=== PATIENT | female | born 1970 | race Caucasian/White ===

== ENCOUNTER → 2018-12-22 | Outpatient (CLI) | payer MEDICAID ==
--- NOTE | 2018-12-22 10:54 | Diagnostic Imaging Report ---
INDICATION: Abdominal pain, mostly midline pain. TECHNIQUE: Multiple real-time tang scale sonographic images of the abdomen. CORRELATION STUDY: None FINDINGS: LIVER: Normal echotexture within the visualized portions of the liver. There is normal, hepatopedal direction of flow within the main portal vein. Liver length 18 cm. GALLBLADDER: No shadowing gallstones or pericholecystic fluid. COMMON BILE DUCT: Nondilated at 4 mm. PANCREAS: Limited in visualization. The visualized portions appearing unremarkable. SPLEEN: 9.6 x 3.4 x 7.9 cm, unremarkable. ABDOMINAL AORTA: Partially obscured. INFERIOR VENA CAVA: Limited in visualization. RIGHT KIDNEY: 10.7 x 4.7 x 5.3 cm. Unremarkable. LEFT KIDNEY: 10.9 x 5.2 x 5.6 cm. Unremarkable. OTHER: None. IMPRESSION: 1. Unremarkable-appearing abdominal ultrasound evaluation. Dictated by: Dictated on workstation # [id number]
== END ==
LOC: RAD FS 09:14
PROVIDERS: ATTEND Emergency Medicine
DX: R10.9 Unspecified abdominal pain (principal)
CPT/HCPCS: 76700

== ENCOUNTER → 2019-01-13 | Outpatient (CLI) | payer MEDICAID ==
--- NOTE | 2019-01-13 11:25 | Diagnostic Imaging Report ---
INDICATION: Neck pain. Time of exam: 11:02 AM Three-view cervical spine were obtained. Alignment is normal. There is some straightening. There are some ununited osteophytes anteriorly at C5-6 and C6-7 levels. No fracture is seen. Odontoid appears intact. IMPRESSION: Cervical spondylosis. No acute bony abnormality is detected. Dictated by: Dictated on workstation # [id number]
== END ==
LOC: RAD FS 10:54
PROVIDERS: ATTEND Emergency Medicine
DX: M47.812 Spondylosis without myelopathy or radiculopathy, cervical region (principal); M43.02 Spondylolysis, cervical region
CPT/HCPCS: 72040

== ENCOUNTER 2019-06-22 10:15 | Outpatient (CLI) | payer MEDICAID ==
[~2019-06-22] VITALS: Ht 154 cm; Wt 104.5 kg
[2019-06-22] MEDS ORDERED: LEVO125T PO (10:21)
== END 2019-06-22 10:29 | disposition home or self-care (01) ==
LOC: PREOP 10:15
PROVIDERS: ATTEND Surgery
DX: Z01.818 Encounter for other preprocedural examination (principal)

== ENCOUNTER 2019-06-23 10:34 | Day surgery (SDC) | payer MEDICAID ==
[2019-06-23] VITALS (9 sets, daily range): BP systolic 101–129; BP diastolic 57–80
[~2019-06-23 10:34] MED LIST: LEVO125T PO
[2019-06-23] MEDS ORDERED: NS IV 500 ML 500 ML ONE (10:46)
[2019-06-23] MEDS ORDERED: NS IV 500 ML 500 ML IV PRN (10:51)
[2019-06-23] MEDS ORDERED: fentaNYL INJECTION 100 MCG/2 ML AMP IVP ONE (11:00)
[2019-06-23] MEDS ORDERED: MIDAZOLAM 2 MG/2 ML (VERSED) VIAL IVP ONE (11:00)
[2019-06-23] MEDS ORDERED: LIDOCAINE JELLY 2% 6 ML SYRINGE MM PRN (11:00)
--- NOTE | 2019-06-23 11:25 | Conscious Sedation/ASA ---
Conscious Sedation Pre-Proced Time 10:30 ASA Score 2 For ASA 3 and 4: Consider anesthesia and medical clearance. Also, for patients with a history of failed moderate sedation consider anesthesia. Airway Lungs Heart ASA score ASA 1: a normal healthy patient ASA 2: a patient with a mild systemic disease (mid diabetes, controlled hypertension, obesity ASA 3: a patient with a severe systemic disease that limits activity (angina, COPD, prior Myocardial infarction) ASA 4: a patient with an incapacitating disease that is a constant threat to life (CHF, renal failure) ASA 5: a moribund patient not expected to survive 24 hrs. (ruptured aneurysm) ASA 6: a declared brain- patient whose organs are being harvested. For emergent operations, add the letter E after the classification Mallampati Classification Grade 2 Sedation Plan Analgesia, Amnesia, Plan communicated to team members, Discussed options with patient/fam, Discussed risks with patient/fam The patient is an appropriate candidate to undergo the planned procedure, sedation, and anesthesia. The patient immediately re-assessed prior to indication. RICH SIMMONS MD Jun 23, 2019 11:25
--- NOTE | 2019-06-23 11:26 | Progress Note-Pre Operative ---
Pre-Operative Progress Note H&P Reviewed The H&P was reviewed, patient examined and no changes noted. Date Seen by Provider: Jun 23, 2019 Time Seen by Provider: 10:30 Date H&P Reviewed: Jun 23, 2019 Time H&P Reviewed: 10:30 Pre-Operative Diagnosis: rectal bleed, abd pain RICH SIMMONS MD Jun 23, 2019 11:26
--- NOTE | 2019-06-23 11:27 | Discharge Inst-Surgical ---
D/C Lap Instructions-TROY Follow Up Activity as tolerated High Fiber Diet 25g or more per day Avoid Alcohol, Caffeine, Spicy [place] and Acid foods. Drink 64 fluid oz or more of fluids per day. Symptoms to Report: Fever over 101 degree F, Nausea/Vomiting If any problems/questions: Contact your physician or go to Emergency Room RICH SIMMONS MD Jun 23, 2019 11:27
[2019-06-23] MEDS ORDERED: ACETAMINOPHEN 325 MG TABLET PO PRN (11:30)
[2019-06-23] MEDS ORDERED: morphine INJ 10 MG/ML 1ML (SYR OR VIAL) IVP PRN ×2 (11:30)
[2019-06-23] MEDS ORDERED: HYDROcodone/APAP 5 MG/325 MG (LORTAB) TAB PO PRN (11:30)
[2019-06-23] MEDS ORDERED: ONDANSETRON 4 MG/2 ML (SDV) Z0FRAN IVP PRN (11:30)
--- NOTE | 2019-06-23 13:18 | Progress Note-Post Operative ---
Post-Operative Progess Note Surgeon (s)/Funeral Home General Manager (s) Surgeon RICH SIMMONS MD Funeral Home General Manager: none Pre-Operative Diagnosis rectal bleed, abd pain Post-Operative Diagnosis mild chronic stage 2 ext and int hemorrhoids. Procedure & Operative Findings Date of Procedure 06/23/19 Procedure Performed/Findings colonoscopy with bx. Anesthesia Type cs Estimated Blood Loss Estimated blood loss (mL): minimal Specimens/Packing Specimens Removed cecum, ascending, descending, rectum RICH SIMMONS MD Jun 23, 2019 13:18
--- NOTE | 2019-06-23 16:27 | OPERATIVE REPORT ---
DATE OF SERVICE: 06/23/2019 ATTENDING PRIMARY CARE PHYSICIAN: Hernandez Barroso DO. PREOPERATIVE DIAGNOSES: Rectal bleeding, crampy abdominal pain. POSTOPERATIVE DIAGNOSES: Mild chronic stage II external and internal hemorrhoids. Remainder of the rectum and colon were normal. There were no inflammatory changes. PROCEDURE: Colonoscopy with random biopsies. SURGEON: Rich Simmons MD. ANESTHESIA: Conscious sedation. ESTIMATED BLOOD LOSS: Minimal. FINDINGS: Mild chronic stage II external and internal hemorrhoids. Remainder of the rectum and colon were normal. There were no inflammatory changes. DISPOSITION: The patient tolerated the procedure well. INDICATIONS: The patient is a 49-year-old female referred over to us for intermittent episodes of red blood per rectum as well as mucus in her stools. She also does have occasional episodes of crampy lower abdominal pain and diarrhea. She does not report any family history of inflammatory bowel disease. DESCRIPTION OF PROCEDURE: The patient was brought to the upper endoscopy suite, laid in left lateral decubitus position. After adequate IV pain and sedative medications and conscious sedation anesthesia, a digital rectal examination was performed, which revealed mild chronic stage II external and internal hemorrhoids, not actively edematous nor inflamed and no bleeding. Normal sphincter tone was felt and there were no palpable masses. The endoscope was then intubated into the anus and rectum gently insufflated. The endoscope was then advanced through the valves of Strauss of the rectum with no polyps, neoplasms or any inflammatory changes identified. Through the sigmoid colon and the remainder of the colon, there were no polyps or mucosal inflammatory changes to indicate any active colitis or proctitis. Random biopsies were taken of the cecum, ascending colon, descending colon and the rectum. The endoscope was slowly withdrawn while taking a second look and suctioning of residual air with no additional findings. The patient tolerated the procedure well. We will recommend continued medical management and surveillance. We will recommend a high fiber diet with 25 grams of fiber daily as well as significant amounts of water to promote soft stools on a daily basis. If she does have recurrent symptoms, then we will proceed with a trial of medical therapy with 5-aminosalicylic acid and to see if she responds and if this is so this may indicate some form of inflammatory bowel disease and we will refer her to gastroenterology. Job ID: [id number] DocumentID: [id number] Dictated Date: 06/23/2019 12:36:24 Fishing Captain Date: 06/23/2019 16:26:04 Dictated By: RICH SIMMONS MD MTDD
== END 2019-06-23 13:45 ==
LOC: ENDO 10:34
PROVIDERS: ATTEND Surgery
DX: K63.89 Other specified diseases of intestine (principal); K64.8 Other hemorrhoids; K64.1 Second degree hemorrhoids; E03.9 Hypothyroidism, unspecified; Z79.899 Other long term (current) drug therapy
CPT/HCPCS: 84703; 88305

== ENCOUNTER 2022-08-25 11:02 | Emergency (ER) | payer SELFPAY ==
[~2022-08-25] VITALS: Ht 157 cm; Wt 100.2 kg
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
--- NOTE | 2022-08-25 12:06 | Diagnostic Imaging Report ---
ANKLE 3 VIEW RIGHT INDICATION: Posterior ankle pain COMPARISON: None available. TECHNIQUE: 3 views of right ankle FINDINGS: Lucent tracks within the calcaneal tuberosity are likely due to anchors from prior Achilles repair. There is marked abnormal thickening at the region of distal Achilles which could be due to recurrent tear or prior surgical change. No acute fracture. No osteochondral lesion talar dome. Small plantar calcaneal spur. IMPRESSION: Abnormal thickening of the distal Achilles shadow may be postoperative in nature or from recurrent tear. Dictated by: Dictated on workstation # [id number]
[2022-08-25 12:26] VITALS: BP 122/68
== END 2022-08-25 12:25 | disposition home or self-care (01) ==
LOC: EDUNIT# 11:02 → ER FS 11:08
DX: S96.911A Strain of unspecified muscle and tendon at ankle and foot level, right foot, initial encounter (principal); S50.811A Abrasion of right forearm, initial encounter; Z98.890 Other specified postprocedural states; Y04.8XXA Assault by other bodily force, initial encounter
CPT/HCPCS: 73610